=== PATIENT | female | born 1975 | race Caucasian/White ===

== ENCOUNTER 2020-12-11 13:20 | Emergency (ER) | payer MEDICARE, OTHER ==
[~2020-12-11] VITALS: Ht 170.2 cm; Wt 68.2 kg
[2020-12-11] MEDS ORDERED: BUPR1FIL SL (13:36)
[2020-12-11] MEDS ORDERED: VITA-328 PO (13:36)
[2020-12-11] MEDS ORDERED: TRAZ-257 PO (13:36)
[2020-12-11] MEDS ORDERED: FOLI-130 PO (13:36)
[2020-12-11] MEDS ORDERED: LEVO150 PO (13:36)
[2020-12-11 14:58] LABS: EOSINOPHILS % (AUTO) 3.1 % (1.0-6.0); HEMATOCRIT 35.7 % (36-46); LYMPHOCYTES # (AUTO) 2.1 K/uL (1.0-4.8); LYMPHOCYTES % (AUTO) 32.4 % (22.0-44.0); MEAN CORPUSCULAR HEMOGLOBIN 35.2 pg (26.0-34.0); MEAN CORPUSCULAR HGB CONC 33.8 G/dL (31.0-37.0); MEAN CORPUSCULAR VOLUME 104 fL (80-100); MONOCYTES # (AUTO) 0.7 K/uL (0.1-1.0); NEUTROPHILS # (AUTO) 3.3 K/uL (1.8-7.7); NEUTROPHILS % (AUTO) 51.5 % (40.0-70.0); PLATELET COUNT (AUTO) 268 K/uL (150-450); RED BLOOD CELL COUNT(AUTO) 3.42 MIL/uL (4.00-5.20); RED CELL DISTRIBUTION WIDTH 16.5 % (11.5-14.5)
[2020-12-11 15:05] LABS: ANION GAP 9 mmol/L (8-16); CALCIUM, TOTAL 7.9 mg/dL (8.8-10.5); CARBON DIOXIDE 26 mmol/L (22-29); CHLORIDE 108 mmol/L (98-107); CREATININE 0.58 mg/dL (0.60-1.30); GLOMERULAR FILTR. RATE CALC > 60 mL/min (>60); GLUCOSE,RANDOM 106 mg/dL (70-110); POTASSIUM 3.8 mmol/L (3.5-5.1); SODIUM SERUM 143 mmol/L (136-145); UREA NITROGEN, BLOOD 10 mg/dL (7-18)
[2020-12-11 15:18] LABS: ALANINE AMINOTRANSFERASE 29 U/L (12-78); ALBUMIN 3.2 g/dL (3.4-5.0); ALKALINE PHOSPHATASE 100 U/L (46-116); ASPARTATE AMINOTRANSFERASE 29 U/L (15-37); BILIRUBIN,TOTAL 0.2 mg/dL (0.1-1.0); HCG,QUANTITATIVE < 1 mIU/mL (0-6); TOTAL PROTEIN, SERUM 6.6 g/dL (6.4-8.2)
[2020-12-11] MEDS ORDERED: LORazepam 1 MG TABLET PO ONE (17:00)
[2020-12-11 17:21] VITALS: BP 128/74
[2020-12-11 18:50] LABS: GLUCOMETER DEV NAME(LOC) ERT.5; GLUCOSE,POINT OF CARE 104 MG/DL (70-110)
== END 2020-12-11 17:37 | disposition home or self-care (01) ==
LOC: EMS 13:22
DX: F10.139 Alcohol abuse with withdrawal, unspecified (principal); E03.9 Hypothyroidism, unspecified; Y90.8 Blood alcohol level of 240 mg/100 ml or more
CPT/HCPCS: 36415; 80053; 82962; 84702; 85025; 99283; G0480